=== PATIENT | male | born 1955 | race Caucasian/White ===

== ENCOUNTER 2020-07-20 01:24 | Inpatient (IN) | payer OTHER ==
[~2020-07-20] VITALS: Ht 182.9 cm; Wt 104.1 kg
--- NOTE | 2020-07-20 01:55 | NUR ---
PATIENT ARRIVED WITH NS IVF INSUING TO GRAVITY AND ZOSYN HAD FINISHED UPON ARRIVAL. PATIENT GRUNTING. NOT RESPONDING/FOLLOWING COMMANDS BUT EYES OPEN. EYES JAUNDICED AND SKIN SLIGHTLY JAUNDICED. NG TUBE IN L NARE AT 69CM AT THE NARE. PATIENT NONVERBAL. GRINDING TEETH. INCONTINENT;SATURATED BRIEF. VS STABLE ON RA. PATIENT STARTED TO COUGH AND VOMITED UP SMALL AMOUNT OF BROWN EMESIS. NG ATTACHED TO CONTINUOUS SUCTION. BROWN FLUID SEEN IN TUBING. DOES NOT ANSWER QUESTIONS. 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 PUPILS 5MM AND SLUGGISH TO LIGHT; ROUND
--- NOTE | 2020-07-20 01:58 | NUR ---
REPORT GIVEN TO PAU KELLER AT BEDSIDE
[2020-07-20] MEDS ORDERED: ONDANSETRON 2MG/ML, 2ML IVPush ONE (02:00)
[2020-07-20] MEDS ORDERED: SODIUM CHLORIDE 0.9% 1,000ML IVBOLUS ONE (02:00)
[2020-07-20 02:29] LABS: MEAN CORPUSCULAR HEMOGLOBIN 37.1 pg (27.5-34.5); MEAN CORPUSCULAR HGB CONC 34.7 g/dL (33.2-36.2); PLATELET COUNT 116 x10^3/uL (130-400); RED BLOOD COUNT 2.44 x10^6/uL (4.38-5.82); RED CELL DISTRIBUTION WIDTH 16.2 % (9.4-14.8)
[2020-07-20 02:34] LABS: INTERNATIONAL NORMALIZED RATIO 2.14 (0.93-1.1); PROTHROMBIN TIME 22.5 Seconds (9.6-11.5)
[2020-07-20 02:36] LABS: ALANINE AMINOTRANSFERASE 69 U/L (12-78); ALBUMIN 1.9 g/dL (3.4-5.0); ANION GAP 6 mmol/L (5-15); CALCIUM 8.3 mg/dL (8.5-10.1); CHLORIDE 115 mmol/L (98-107); CREATININE 1.32 mg/dL (0.7-1.3)
[2020-07-20 02:39] LABS: ALKALINE PHOSPHATASE 111 U/L (45-117); TOTAL PROTEIN 7.9 g/dL (6.4-8.2); TROPONIN I < 0.015 ng/mL (0.000-0.045)
[2020-07-20 02:45] LABS: MD YES
[2020-07-20 02:52] LABS: BANDS%(MANUAL) 1 % (0-7); LYMPH#(MANUAL) 1.22 x10^3/uL (1-3.4); LYMPHS% (MANUAL) 12 % (22-44); MONOS#(MANUAL) 1.33 x10^3/uL (0.3-2.7); MONOS% (MANUAL) 13 % (2-9); SEG#(MANUAL) 7.55 x10^3/uL (1.8-6.8); SEGS% (MANUAL) 74 % (42-75)
[2020-07-20 02:54] LABS: ANISOCYTOSIS 2+
[2020-07-20 02:55] LABS: TARGET CELLS 1+
[2020-07-20 02:59] LABS: <PLATELET ESTIMATE> DECREASED; <PLT MORPHOLOGY> NORMAL PLT MORPH
[2020-07-20 03:00] LABS: MICROCYTOSIS 1+
[2020-07-20 03:30] LABS: MICROSCOPIC INDICATED
[2020-07-20] MEDS ORDERED: PANTOPRAZOLE 80 MG in SODIUM CHLORIDE 0.9% 50 ML IVPB ONE (04:00)
[2020-07-20] MEDS: PLEASE ENTER HEIGHT MC SCH (04:00)
[2020-07-20] MEDS ORDERED: OCTREOTIDE 50 MCG/ML, 1ML (0.05MG/ML) IVPush ONE (04:00)
[2020-07-20] MEDS ORDERED: PANTOPRAZOLE 80 MG in SODIUM CHLORIDE 0.9% 100 ML IV SCH (04:00)
[2020-07-20] MEDS: OCTREOTIDE 500 MCG in SODIUM CHLORIDE 0.9% 99 ML IV SCH ×2 (04:21→13:16)
--- NOTE | 2020-07-20 04:28 | NUR ---
PT MOVED TO TR04 FOR INTUBATION Addendum: 07/20/20 at 0557 by [email or web address] INTUBATED DUE TO INABILITY TO MAINTAIN AIRWAY DURING DRY HEAVES AND VOMITING
--- NOTE | 2020-07-20 04:34 | NUR ---
PT GIVEN 20 OF ETOMIDATE AND 100 OF SUCS, INTUBATED 26 AT THE TEETH. VENT SETTINGS 3L 100%, PEEP OF 5, RATE 18, TIDAL VOL 480. Addendum: 07/20/20 at 0637 by [email or web address] 7.5ET TUBE 26 AT THE TEETH
--- NOTE | 2020-07-20 04:35 | NUR ---
BREATH SOUNDS HEARD IN ALL [place]. EQUAL RISE AND FALL OF CHEST NOTED WITH END TIDAL OF 24
--- NOTE | 2020-07-20 04:58 | NUR ---
5MG VERSED GIVEN PER VERBAL ORDER DR. ESTRELLA
[2020-07-20] MEDS ORDERED: PHARMACY MAY ADJ FOR RENAL FX MC PRN (05:00)
[2020-07-20] MEDS ORDERED: THIAMINE 200 MG in SODIUM CHLORIDE 0.9% 50 ML IV ONE (05:00)
[2020-07-20] MEDS ORDERED: PHYTONADIONE 10 MG/ML, 1ML SQ ONE (05:00)
[2020-07-20] MEDS: MIDAZOLAM HCL 50 MG in SODIUM CHLORIDE 0.9% 40 ML IV PRN ×2 (05:25→16:16)
[2020-07-20] MEDS ORDERED: MIDAZOLAM 1 MG/ML, 5ML IVPush ONE (05:30)
[2020-07-20] MEDS ORDERED: MIDAZOLAM 2 MG/ML ORAL SOL PO ONE (05:30)
--- NOTE | 2020-07-20 05:35 | NUR ---
DR RECIO AT BEDSIDE TO ASSESS/ ADMIT PT
--- NOTE | 2020-07-20 06:16 | NUR ---
PT CLEANED OR BLACK TARRY STOOL AND REPOSITIONED. RIVERA CLEAR RETA URINE DRAINING WITHOUT DIFFICULTY.
[2020-07-20] MEDS ORDERED: ETOMIDATE 20 MG/10 ML ONE (06:27)
[2020-07-20] MEDS ORDERED: MIDAZOLAM 1 MG/ML, 5ML ONE (06:27)
[2020-07-20] MEDS ORDERED: SUCCINYLCHOLINE 20 MG/ML, 10ML ONE (06:27)
--- NOTE | 2020-07-20 06:37 | NUR ---
RESPIRATORY AT BEDSIDE VENT ADJUSTED. NEW RATE 14 AT 80%. PT SAT REMAINS 100% AT THIS TIME. VERSED DRIP TITRATED WELL
--- NOTE | 2020-07-20 06:54 | NUR ---
REPORT TO KATHY KELLERCOMPUTED TOMOGRAPHY TECHNOLOGIST OF CARE AT THIS TIME
[2020-07-20] MEDS: PANTOPRAZOLE 80 MG in SODIUM CHLORIDE 0.9% 100 ML IV SCH ×2 (07:36→13:16)
[2020-07-20] MEDS ORDERED: PIPERACILLIN/TAZO/PMX 3.375GM 50 ML ONE (07:50)
[2020-07-20] MEDS ORDERED: PHYTONADIONE 10 MG/ML, 1ML ONE (07:51)
[2020-07-20] MEDS: PIPERACILLIN/TAZO/PMX 3.375GM 50 ML IV SCH ×4 (07:57→23:15)
[2020-07-20 08:39] LABS: AMPHETAMINE SCREEN, URINE Negative (Negative); BARBITURATE SCREEN, URINE Negative (Negative); BENZODIAZEPINE SCREEN, URINE Negative (Negative); CANNABINOID SCREEN, URINE Negative (Negative); COCAINE SCREEN, URINE Negative (Negative); METHADONE SCREEN, URINE Negative (Negative); OPIATE SCREEN, URINE Negative (Negative)
[2020-07-20] MEDS: THIAMINE 200 MG in SODIUM CHLORIDE 0.9% 50 ML IV SCH (09:54)
[2020-07-20] MEDS ORDERED: LIDOCAINE-MPF 1%, 2ML ENDO PRN (10:00)
[2020-07-20] MEDS ORDERED: GLUCAGON 1 MG IM PRN (10:00)
[2020-07-20] MEDS ORDERED: OCTREOTIDE 500 MCG in SODIUM CHLORIDE 0.9% 99 ML IV SCH (10:00)
[2020-07-20] MEDS ORDERED: DEXTROSE 50%, 50ML SYRINGE IVPush PRN (10:00)
[2020-07-20] MEDS ORDERED: PHARMACY MAY ADJ FOR RENAL FX MC SCH (10:00)
[2020-07-20] MEDS ORDERED: ONDANSETRON 2MG/ML, 2ML IV PRN (10:00)
[2020-07-20] MEDS ORDERED: DEXTROSE 4 GM TAB.CHEW PO PRN (10:00)
[2020-07-20] MEDS ORDERED: NOREPINEPHRINE 8 MG in SODIUM CHLORIDE 0.9% 242 ML IV PRN (10:00)
[2020-07-20] MEDS ORDERED: MAGNESIUM SULFATE PMX 2GM/50ML 50 ML IV ONE (10:00)
[2020-07-20] MEDS ORDERED: FENTANYL PF 1,000 MCG in SODIUM CHLORIDE 0.9% 80 ML IV PRN (10:00)
[2020-07-20] MEDS ORDERED: CARV3.12 PO (10:52)
[2020-07-20] MEDS ORDERED: MULT-717 PO (10:52)
[2020-07-20 11:05] LABS: BASOPHILS % (AUTO) 1 % (0-1); EOSINOPHILS % (AUTO) 1 % (1-7); LYMPHOCYTES % (AUTO) 26 % (22-44); MEAN CORPUSCULAR HEMOGLOBIN 37.4 pg (27.5-34.5); MEAN CORPUSCULAR HGB CONC 34.4 g/dL (33.2-36.2); MEAN PLATELET VOLUME 8.9 fL (7.4-10.4); MONOCYTES % (AUTO) 9 % (2-9); NEUTROPHILS % (AUTO) 63 % (42-75); PLATELET COUNT 94 x10^3/uL (130-400); RED BLOOD COUNT 2.19 x10^6/uL (4.38-5.82); RED CELL DISTRIBUTION WIDTH 16.8 % (9.4-14.8)
[2020-07-20 11:09] LABS: MD NO
[2020-07-20 11:21] LABS: ALANINE AMINOTRANSFERASE 61 U/L (12-78); ALBUMIN 1.8 g/dL (3.4-5.0); ANION GAP 7 mmol/L (5-15); CALCIUM 7.9 mg/dL (8.5-10.1); CHLORIDE 117 mmol/L (98-107); CREATININE 1.34 mg/dL (0.7-1.3)
[2020-07-20 11:24] LABS: ALKALINE PHOSPHATASE 97 U/L (45-117); BILIRUBIN,TOTAL 7.6 mg/dL (0.2-1.0); TOTAL PROTEIN 7.4 g/dL (6.4-8.2)
--- NOTE | 2020-07-20 11:47 | NUR ---
TF goal in RD note if needed
[2020-07-20] MEDS: SODIUM CHLORIDE FLUSH 10ML SYR IVF SCH ×2 (11:53→22:07)
[2020-07-20] MEDS: SODIUM CHLORIDE 0.9% 1,000 ML IV SCH (17:28)
[2020-07-20] MEDS: LACTULOSE 20 GM/30 ML UDC NG SCH ×2 (18:01→22:07)
[2020-07-20] MEDS: RIFAXIMIN 550 MG TABLET PO SCH (18:01)
[2020-07-21] VITALS (16 sets, daily range): BP systolic 95–131; BP diastolic 50–71
[2020-07-21] MEDS: PANTOPRAZOLE 80 MG in SODIUM CHLORIDE 0.9% 100 ML IV SCH ×2 (00:30→11:15)
[2020-07-21] MEDS: SODIUM CHLORIDE 0.9% 1,000 ML IV SCH ×2 (02:20→17:15)
[2020-07-21 04:48] LABS: BASOPHILS % (AUTO) 1 % (0-1); EOSINOPHILS % (AUTO) 5 % (1-7); LYMPHOCYTES % (AUTO) 29 % (22-44); MEAN CORPUSCULAR HEMOGLOBIN 36.9 pg (27.5-34.5); MEAN CORPUSCULAR HGB CONC 34.9 g/dL (33.2-36.2); MEAN PLATELET VOLUME 8.9 fL (7.4-10.4); MONOCYTES % (AUTO) 10 % (2-9); NEUTROPHILS % (AUTO) 56 % (42-75); PLATELET COUNT 77 x10^3/uL (130-400)
[2020-07-21 04:57] LABS: INTERNATIONAL NORMALIZED RATIO 1.84 (0.93-1.1); PROTHROMBIN TIME 19.4 Seconds (9.6-11.5)
[2020-07-21 05:00] LABS: ALBUMIN 1.8 g/dL (3.4-5.0); ANION GAP 9 mmol/L (5-15); CALCIUM 7.7 mg/dL (8.5-10.1); CHLORIDE 118 mmol/L (98-107)
[2020-07-21] MEDS: PIPERACILLIN/TAZO/PMX 3.375GM 50 ML IV SCH ×4 (05:15→23:23)
[2020-07-21 05:29] LABS: ALANINE AMINOTRANSFERASE 53 U/L (12-78); ALKALINE PHOSPHATASE 87 U/L (45-117); BILIRUBIN,TOTAL 7.6 mg/dL (0.2-1.0); CREATININE 1.37 mg/dL (0.7-1.3); TOTAL PROTEIN 6.8 g/dL (6.4-8.2)
[2020-07-21 05:44] LABS: MD SCAN
[2020-07-21] MEDS: LACTULOSE 20 GM/30 ML UDC NG SCH ×2 (09:00→16:00)
[2020-07-21] MEDS: RIFAXIMIN 550 MG TABLET PO SCH (09:00)
[2020-07-21] MEDS: THIAMINE 200 MG in SODIUM CHLORIDE 0.9% 50 ML IV SCH (09:01)
[2020-07-21] MEDS: SODIUM CHLORIDE FLUSH 10ML SYR IVF SCH ×2 (09:01→20:27)
[2020-07-21] MEDS ORDERED: MIDAZOLAM 1 MG/ML, 5ML ONE (10:33)
[2020-07-21] MEDS ORDERED: FENTANYL PF 100 MCG/2ML ONE (10:33)
[2020-07-21] MEDS ORDERED: EPINEPHRINE SYRINGE 0.1 MG/ML, 10ML ONE (10:40)
[2020-07-21] MEDS ORDERED: PANTOPRAZOLE 40 MG IV IVPush SCH (17:30)
[2020-07-21] MEDS: ESOMEPRAZOLE 40 MG IV IVPush SCH (17:56)
[2020-07-21] MEDS ORDERED: LACTULOSE 3.3 GM/5 ML ORAL.SOL RC SCH (21:00)
[2020-07-22] MEDS: SODIUM CHLORIDE 0.9% 1,000 ML IV SCH (04:14)
[2020-07-22 04:32] LABS: BASOPHILS % (AUTO) 1 % (0-1); EOSINOPHILS % (AUTO) 3 % (1-7); LYMPHOCYTES % (AUTO) 25 % (22-44); MEAN CORPUSCULAR HEMOGLOBIN 35.7 pg (27.5-34.5); MEAN PLATELET VOLUME 8.4 fL (7.4-10.4); MONOCYTES % (AUTO) 10 % (2-9); NEUTROPHILS % (AUTO) 61 % (42-75); PLATELET COUNT 71 x10^3/uL (130-400); RED CELL DISTRIBUTION WIDTH 22.9 % (9.4-14.8)
[2020-07-22 04:45] LABS: ALANINE AMINOTRANSFERASE 52 U/L (12-78); ALBUMIN 1.9 g/dL (3.4-5.0); ANION GAP 7 mmol/L (5-15); CALCIUM 7.9 mg/dL (8.5-10.1); CHLORIDE 122 mmol/L (98-107); CREATININE 1.33 mg/dL (0.7-1.3)
[2020-07-22 04:47] LABS: ALKALINE PHOSPHATASE 84 U/L (45-117); BILIRUBIN,TOTAL 8.7 mg/dL (0.2-1.0); TOTAL PROTEIN 7.1 g/dL (6.4-8.2)
[2020-07-22] MEDS: PIPERACILLIN/TAZO/PMX 3.375GM 50 ML IV SCH ×4 (05:04→22:04)
[2020-07-22 05:55] LABS: MD SCAN
[2020-07-22] MEDS: ESOMEPRAZOLE 40 MG IV IVPush SCH ×2 (06:23→17:51)
[2020-07-22] MEDS ORDERED: POTASSIUM CHLORIDE 40 MEQ in SODIUM CHLORIDE 0.9% 100 ML IV ONE (07:00)
[2020-07-22] MEDS: POTASSIUM CHLORIDE 40 MEQ in DEXTROSE 5% 1,000 ML IV SCH ×2 (07:55→21:46)
[2020-07-22] MEDS ORDERED: POTASSIUM CHLORIDE 40 MEQ in SODIUM CHLORIDE 0.9% 500 ML IV ONE (08:30)
[2020-07-22] MEDS: THIAMINE 200 MG in SODIUM CHLORIDE 0.9% 50 ML IV SCH (08:57)
[2020-07-22] MEDS: LACTULOSE 3.3 GM/5 ML ORAL.SOL RC SCH ×3 (09:00→21:46)
[2020-07-22] MEDS: SODIUM CHLORIDE FLUSH 10ML SYR IVF SCH ×2 (09:00→21:46)
[2020-07-22] MEDS: PROPOFOL 100 ML IV PRN ×3 (11:03→21:48)
[2020-07-23 04:51] LABS: BASOPHILS % (AUTO) 1 % (0-1); EOSINOPHILS % (AUTO) 6 % (1-7); LYMPHOCYTES % (AUTO) 25 % (22-44); MEAN CORPUSCULAR HEMOGLOBIN 35.5 pg (27.5-34.5); MEAN CORPUSCULAR HGB CONC 34.6 g/dL (33.2-36.2); MEAN PLATELET VOLUME 8.8 fL (7.4-10.4); MONOCYTES % (AUTO) 12 % (2-9); NEUTROPHILS % (AUTO) 57 % (42-75); PLATELET COUNT 70 x10^3/uL (130-400); RED BLOOD COUNT 2.35 x10^6/uL (4.38-5.82); RED CELL DISTRIBUTION WIDTH 23.3 % (9.4-14.8)
[2020-07-23 04:56] LABS: ANION GAP 5 mmol/L (5-15); CALCIUM 7.8 mg/dL (8.5-10.1); CHLORIDE 126 mmol/L (98-107); CREATININE 1.13 mg/dL (0.7-1.3)
[2020-07-23 05:08] LABS: TRIGLYCERIDES 136 mg/dL (50-200)
[2020-07-23] MEDS: PIPERACILLIN/TAZO/PMX 3.375GM 50 ML IV SCH (05:12)
[2020-07-23] MEDS: ESOMEPRAZOLE 40 MG IV IVPush SCH ×2 (05:13→17:34)
[2020-07-23 05:55] LABS: MD SCAN
[2020-07-23] MEDS: PROPOFOL 100 ML IV PRN ×2 (07:58→20:18)
[2020-07-23] MEDS: CEFTRIAXONE PMX 2GM/50ML 50 ML IVPB SCH (07:58)
[2020-07-23] MEDS: THIAMINE 200 MG in SODIUM CHLORIDE 0.9% 50 ML IV SCH (09:11)
[2020-07-23] MEDS: SODIUM CHLORIDE FLUSH 10ML SYR IVF SCH ×2 (09:11→21:00)
[2020-07-23] MEDS: LACTULOSE 3.3 GM/5 ML ORAL.SOL RC SCH ×2 (09:55→21:03)
[2020-07-23] MEDS: POTASSIUM CHLORIDE 40 MEQ in DEXTROSE 5% 1,000 ML IV SCH ×2 (11:30→21:04)
[2020-07-23] MEDS ORDERED: MIDAZOLAM 1 MG/ML, 2ML IVPush ONE (12:00)
[2020-07-23] MEDS ORDERED: SODIUM CHLORIDE 0.9%, 500ML IVBOLUS ONE (17:30)
[2020-07-24] MEDS: PROPOFOL 100 ML IV PRN (01:15)
[2020-07-24 04:26] LABS: BASOPHILS % (AUTO) 1 % (0-1); EOSINOPHILS % (AUTO) 5 % (1-7); LYMPHOCYTES % (AUTO) 29 % (22-44); MEAN CORPUSCULAR HEMOGLOBIN 35.7 pg (27.5-34.5); MEAN CORPUSCULAR HGB CONC 34.3 g/dL (33.2-36.2); MEAN PLATELET VOLUME 8.7 fL (7.4-10.4); MONOCYTES % (AUTO) 15 % (2-9); NEUTROPHILS % (AUTO) 51 % (42-75); PLATELET COUNT 67 x10^3/uL (130-400); RED BLOOD COUNT 2.34 x10^6/uL (4.38-5.82); RED CELL DISTRIBUTION WIDTH 22.5 % (9.4-14.8)
[2020-07-24 04:42] LABS: ANION GAP 4 mmol/L (5-15); CALCIUM 7.8 mg/dL (8.5-10.1); CHLORIDE 124 mmol/L (98-107)
[2020-07-24 04:45] LABS: CREATININE 1.08 mg/dL (0.7-1.3)
[2020-07-24] MEDS: ESOMEPRAZOLE 40 MG IV IVPush SCH ×2 (05:19→18:22)
[2020-07-24 05:39] LABS: MD SCAN
[2020-07-24] MEDS: CEFTRIAXONE PMX 2GM/50ML 50 ML IVPB SCH (05:57)
[2020-07-24] MEDS ORDERED: MAGNESIUM SULFATE PMX 2GM/50ML 50 ML IV ONE (06:30)
[2020-07-24] MEDS: SODIUM CHLORIDE FLUSH 10ML SYR IVF SCH ×2 (10:13→22:20)
[2020-07-24] MEDS: THIAMINE 200 MG in SODIUM CHLORIDE 0.9% 50 ML IV SCH (10:13)
[2020-07-24] MEDS: LACTULOSE 3.3 GM/5 ML ORAL.SOL RC SCH ×2 (10:13→22:28)
[2020-07-24 14:00] VITALS: BP 118/73
[2020-07-24 20:21] VITALS: BP 133/80
[2020-07-25 01:27] VITALS: BP 138/86
[2020-07-25] MEDS: CEFTRIAXONE PMX 2GM/50ML 50 ML IVPB SCH (05:54)
[2020-07-25] MEDS: ESOMEPRAZOLE 40 MG IV IVPush SCH ×2 (05:54→17:32)
[2020-07-25 06:05] LABS: BASOPHILS % (AUTO) 1 % (0-1); EOSINOPHILS % (AUTO) 3 % (1-7); LYMPHOCYTES % (AUTO) 26 % (22-44); MEAN CORPUSCULAR HEMOGLOBIN 35.7 pg (27.5-34.5); MEAN CORPUSCULAR HGB CONC 33.9 g/dL (33.2-36.2); MEAN PLATELET VOLUME 8.7 fL (7.4-10.4); MONOCYTES % (AUTO) 15 % (2-9); NEUTROPHILS % (AUTO) 56 % (42-75); PLATELET COUNT 79 x10^3/uL (130-400); RED BLOOD COUNT 2.59 x10^6/uL (4.38-5.82); RED CELL DISTRIBUTION WIDTH 22.4 % (9.4-14.8)
[2020-07-25 06:09] LABS: CHLORIDE 123 mmol/L (98-107)
[2020-07-25 06:14] LABS: ANION GAP 5 mmol/L (5-15); CALCIUM 8.7 mg/dL (8.5-10.1); CREATININE 1.03 mg/dL (0.7-1.3)
[2020-07-25 06:38] LABS: MD SCAN
[2020-07-25 07:05] VITALS: BP 161/92
[2020-07-25] MEDS: SODIUM CHLORIDE FLUSH 10ML SYR IVF SCH ×2 (09:00→20:07)
[2020-07-25] MEDS: THIAMINE 200 MG in SODIUM CHLORIDE 0.9% 50 ML IV SCH (09:11)
[2020-07-25 13:42] VITALS: BP 130/72
[2020-07-25] MEDS: LACTULOSE 20 GM/30 ML UDC PO SCH (20:07)
[2020-07-25 20:09] VITALS: BP 113/71
[2020-07-26] VITALS (8 sets, daily range): BP systolic 100–138; BP diastolic 65–72
[2020-07-26 05:36] LABS: ALBUMIN 1.8 g/dL (3.4-5.0); ANION GAP 9 mmol/L (5-15); CALCIUM 8.1 mg/dL (8.5-10.1); CHLORIDE 113 mmol/L (98-107)
[2020-07-26] MEDS: ESOMEPRAZOLE 40 MG IV IVPush SCH ×2 (05:36→16:58)
[2020-07-26] MEDS: CEFTRIAXONE PMX 2GM/50ML 50 ML IVPB SCH (05:36)
[2020-07-26 05:42] LABS: ALANINE AMINOTRANSFERASE 54 U/L (12-78); ALKALINE PHOSPHATASE 88 U/L (45-117); BILIRUBIN,TOTAL 5.5 mg/dL (0.2-1.0); CREATININE 0.94 mg/dL (0.7-1.3); TOTAL PROTEIN 7.2 g/dL (6.4-8.2)
[2020-07-26] MEDS: SODIUM CHLORIDE FLUSH 10ML SYR IVF SCH ×2 (09:00→22:31)
[2020-07-26] MEDS: LACTULOSE 20 GM/30 ML UDC PO SCH ×3 (09:08→21:00)
[2020-07-26] MEDS: THIAMINE 200 MG in SODIUM CHLORIDE 0.9% 50 ML IV SCH (09:08)
[2020-07-26] MEDS ORDERED: POTASSIUM CHLORIDE 20 MEQ TAB.ER.PRT PO ONE (16:30)
[2020-07-26] MEDS: THIAMINE 100MG TABLET PO SCH (22:31)
[2020-07-27 01:29] VITALS: BP 137/75
[2020-07-27 02:01] VITALS: BP 137/78
[2020-07-27] MEDS: CEFTRIAXONE PMX 2GM/50ML 50 ML IVPB SCH (05:45)
[2020-07-27] MEDS: ESOMEPRAZOLE 40 MG IV IVPush SCH ×2 (05:45→17:12)
[2020-07-27 07:54] VITALS: BP 119/66
[2020-07-27] MEDS: LACTULOSE 20 GM/30 ML UDC PO SCH ×4 (07:59→21:03)
[2020-07-27] MEDS: THIAMINE 100MG TABLET PO SCH ×2 (08:00→21:02)
[2020-07-27] MEDS: SODIUM CHLORIDE FLUSH 10ML SYR IVF SCH ×2 (08:00→21:03)
[2020-07-27 08:42] LABS: BASOPHILS % (AUTO) 0 % (0-1); EOSINOPHILS % (AUTO) 3 % (1-7); LYMPHOCYTES % (AUTO) 29 % (22-44); MEAN CORPUSCULAR HEMOGLOBIN 34.8 pg (27.5-34.5); MEAN CORPUSCULAR HGB CONC 34.6 g/dL (33.2-36.2); MEAN PLATELET VOLUME 8.9 fL (7.4-10.4); MONOCYTES % (AUTO) 15 % (2-9); NEUTROPHILS % (AUTO) 54 % (42-75); PLATELET COUNT 81 x10^3/uL (130-400); RED BLOOD COUNT 2.81 x10^6/uL (4.38-5.82); RED CELL DISTRIBUTION WIDTH 22.9 % (9.4-14.8)
[2020-07-27 08:52] LABS: ALBUMIN 1.9 g/dL (3.4-5.0); ANION GAP 6 mmol/L (5-15); CALCIUM 8.3 mg/dL (8.5-10.1); CHLORIDE 113 mmol/L (98-107)
[2020-07-27 08:56] LABS: ALANINE AMINOTRANSFERASE 56 U/L (12-78); ALKALINE PHOSPHATASE 88 U/L (45-117); BILIRUBIN,TOTAL 6.5 mg/dL (0.2-1.0); CREATININE 0.92 mg/dL (0.7-1.3); TOTAL PROTEIN 7.5 g/dL (6.4-8.2)
[2020-07-27 09:11] LABS: MD SCAN
[2020-07-27 12:33] VITALS: BP 123/75
[2020-07-27] MEDS ORDERED: MAGNESIUM SULFATE PMX 2GM/50ML 50 ML IV ONE (16:30)
[2020-07-27] MEDS: FUROSEMIDE 20 MG TABLET PO SCH (17:12)
[2020-07-27 19:26] VITALS: BP 136/75
[2020-07-27] MEDS: SPIRONOLACTONE 25 MG TABLET PO SCH (21:02)
[2020-07-28 01:25] VITALS: BP 137/78
[2020-07-28 05:41] LABS: BASOPHILS % (AUTO) 1 % (0-1); EOSINOPHILS % (AUTO) 3 % (1-7); LYMPHOCYTES % (AUTO) 28 % (22-44); MEAN CORPUSCULAR HGB CONC 34.6 g/dL (33.2-36.2); MEAN PLATELET VOLUME 8.6 fL (7.4-10.4); MONOCYTES % (AUTO) 15 % (2-9); NEUTROPHILS % (AUTO) 54 % (42-75); PLATELET COUNT 88 x10^3/uL (130-400); RED BLOOD COUNT 2.84 x10^6/uL (4.38-5.82); RED CELL DISTRIBUTION WIDTH 22.7 % (9.4-14.8)
[2020-07-28 05:52] LABS: CHLORIDE 113 mmol/L (98-107)
[2020-07-28 05:58] LABS: ANION GAP 7 mmol/L (5-15); CALCIUM 8.5 mg/dL (8.5-10.1); CREATININE 0.81 mg/dL (0.7-1.3)
[2020-07-28] MEDS: ESOMEPRAZOLE 40 MG IV IVPush SCH (06:11)
[2020-07-28] MEDS: CEFTRIAXONE PMX 2GM/50ML 50 ML IVPB SCH (06:11)
[2020-07-28] MEDS: LACTULOSE 20 GM/30 ML UDC PO SCH ×4 (06:11→21:05)
[2020-07-28 06:43] LABS: ANISOCYTOSIS 1+; MD MORPH REVIEW ONLY
[2020-07-28 06:44] LABS: <PLATELET ESTIMATE> DECREASED; <PLT MORPHOLOGY> NORMAL PLT MORPH
[2020-07-28 07:08] VITALS: BP 133/69
[2020-07-28] MEDS: FUROSEMIDE 20 MG TABLET PO SCH ×2 (07:27→11:30)
[2020-07-28] MEDS: SODIUM CHLORIDE FLUSH 10ML SYR IVF SCH ×2 (07:27→21:05)
[2020-07-28] MEDS: THIAMINE 100MG TABLET PO SCH ×2 (07:27→21:05)
[2020-07-28] MEDS: SPIRONOLACTONE 25 MG TABLET PO SCH ×2 (07:27→21:05)
[2020-07-28] MEDS ORDERED: POTASSIUM CHLORIDE 40 MEQ in SODIUM CHLORIDE 0.9% 500 ML IV ONE (08:00)
[2020-07-28] MEDS: PANTOPRAZOLE 40MG TABLET PO SCH ×2 (11:30→21:05)
[2020-07-28 13:48] VITALS: BP 144/80
[2020-07-28 20:22] VITALS: BP 148/80
[2020-07-29 00:33] VITALS: BP 126/81
[2020-07-29 05:29] LABS: BASOPHILS % (AUTO) 1 % (0-1); EOSINOPHILS % (AUTO) 3 % (1-7); LYMPHOCYTES % (AUTO) 28 % (22-44); MEAN CORPUSCULAR HEMOGLOBIN 35.2 pg (27.5-34.5); MEAN CORPUSCULAR HGB CONC 34.7 g/dL (33.2-36.2); MEAN PLATELET VOLUME 8.7 fL (7.4-10.4); MONOCYTES % (AUTO) 13 % (2-9); NEUTROPHILS % (AUTO) 56 % (42-75); PLATELET COUNT 105 x10^3/uL (130-400); RED BLOOD COUNT 2.98 x10^6/uL (4.38-5.82); RED CELL DISTRIBUTION WIDTH 23.2 % (9.4-14.8)
[2020-07-29 05:34] LABS: ANION GAP 7 mmol/L (5-15); CALCIUM 8.9 mg/dL (8.5-10.1); CHLORIDE 113 mmol/L (98-107)
[2020-07-29 05:38] LABS: ALANINE AMINOTRANSFERASE 74 U/L (12-78); ALKALINE PHOSPHATASE 103 U/L (45-117); BILIRUBIN,TOTAL 5.5 mg/dL (0.2-1.0); CREATININE 0.98 mg/dL (0.7-1.3); TOTAL PROTEIN 8.1 g/dL (6.4-8.2)
[2020-07-29] MEDS: CEFTRIAXONE PMX 2GM/50ML 50 ML IVPB SCH (06:06)
[2020-07-29] MEDS: LACTULOSE 20 GM/30 ML UDC PO SCH ×3 (06:06→14:58)
[2020-07-29 06:34] LABS: MD SCAN
[2020-07-29 06:56] VITALS: BP 114/62
[2020-07-29] MEDS: SPIRONOLACTONE 25 MG TABLET PO SCH (09:05)
[2020-07-29] MEDS: FUROSEMIDE 20 MG TABLET PO SCH (09:05)
[2020-07-29] MEDS: PANTOPRAZOLE 40MG TABLET PO SCH (09:05)
[2020-07-29] MEDS: THIAMINE 100MG TABLET PO SCH (09:05)
[2020-07-29] MEDS: SODIUM CHLORIDE FLUSH 10ML SYR IVF SCH (09:06)
[2020-07-29] MEDS ORDERED: POTASSIUM CHLORIDE 20 MEQ TAB.ER.PRT PO ONE (10:30)
[2020-07-29 12:39] VITALS: BP 135/80
[2020-07-29] MEDS ORDERED: LACT20SO13 PO (15:48)
[2020-07-29] MEDS ORDERED: FURO20TA3 PO (15:48)
[2020-07-29] MEDS ORDERED: PANT40TA6 PO (15:48)
[2020-07-29] MEDS ORDERED: MAGN400T50 PO (15:48)
[2020-07-29] MEDS ORDERED: THIA100T67 PO (15:48)
[2020-07-29] MEDS ORDERED: SPIR25TA PO (15:48)
[2020-07-29] MEDS ORDERED: MULT-257 PO (15:59)
[2020-07-29] MEDS ORDERED: FOLI1TAB32 PO (15:59)
[2020-07-29] MEDS ORDERED: MAGNESIUM SULFATE PMX 2GM/50ML 50 ML IV ONE (16:00)
[2020-07-29] MEDS ORDERED: MAGNESIUM OXIDE 400 MG TABLET PO ONE (16:00)
[2020-07-29 16:18] VITALS: BP 126/77
[2020-07-29 16:19] VITALS: BP 134/78
[2020-07-29 16:20] VITALS: BP 99/66
[2020-07-29] MEDS ORDERED: MAGNESIUM OXIDE 400 MG TABLET PO SCH (21:00)
== END 2020-07-29 17:50 | disposition home or self-care (01) | DRG 441 ==
LOC: ED 01:44 → EDIP 04:50 → CCU 08:08 → 3N 07-24 15:27
PROVIDERS: ADMIT Family Medicine; ATTEND Internal Medicine
PROC: 5A1955Z Respiratory Ventilation, Greater than 96 Consecutive Hours (ICD-10-PCS; 2020-07-20)
PROC: 0BH17EZ Insertion of Endotracheal Airway into Trachea, Via Natural or Artificial Opening (ICD-10-PCS; 2020-07-20)
PROC: 0T9B70Z Drainage of Bladder with Drainage Device, Via Natural or Artificial Opening (ICD-10-PCS; 2020-07-20)
PROC: 30233N1 Transfusion of Nonautologous Red Blood Cells into Peripheral Vein, Percutaneous Approach (ICD-10-PCS; 2020-07-21)
PROC: 30233K1 Transfusion of Nonautologous Frozen Plasma into Peripheral Vein, Percutaneous Approach (ICD-10-PCS; 2020-07-21)
PROC: 0DJ08ZZ Inspection of Upper Intestinal Tract, Via Natural or Artificial Opening Endoscopic (ICD-10-PCS; principal; 2020-07-21 08:00)
DX: K76.6 Portal hypertension (principal); I81 Portal vein thrombosis; E43 Unspecified severe protein-calorie malnutrition; G93.41 Metabolic encephalopathy; J15.5 Pneumonia due to Escherichia coli; J96.01 Acute respiratory failure with hypoxia; N17.0 Acute kidney failure with tubular necrosis; J69.0 Pneumonitis due to inhalation of food and vomit; K22.11 Ulcer of esophagus with bleeding; D68.4 Acquired coagulation factor deficiency; D62 Acute posthemorrhagic anemia; E87.0 Hyperosmolality and hypernatremia; E87.1 Hypo-osmolality and hyponatremia; E87.2 Acidosis; F10.239 Alcohol dependence with withdrawal, unspecified; Z99.11 Dependence on respirator [ventilator] status; K70.11 Alcoholic hepatitis with ascites; K70.40 Alcoholic hepatic failure without coma; K70.31 Alcoholic cirrhosis of liver with ascites; Z20.822 Contact with and (suspected) exposure to COVID-19; D69.59 Other secondary thrombocytopenia; E87.5 Hyperkalemia; E87.6 Hypokalemia; F03.90 Unspecified dementia, unspecified severity, without behavioral disturbance, psychotic disturbance, mood disturbance, and anxiety; D53.1 Other megaloblastic anemias, not elsewhere classified; D72.829 Elevated white blood cell count, unspecified; K31.89 Other diseases of stomach and duodenum; R00.0 Tachycardia, unspecified; Z87.19 Personal history of other diseases of the digestive system
CPT/HCPCS: 31500; 36415; 36600; 51702; 71045; 76700; 76705; 80048; 80053; 80074; 80307; 80320; 81001; 82140; 82607; 82803; 83605; 83735; 84100; 84132; 84145; 84443; 84478; 84484; 85014; 85018; 85025; 85610; 86850; 86900; 86923; 87040; 87070; 87081; 87086; 87186; 87205; 87635; 93005; 94002; 94003; 94150; 96372; 96374; 96375; 99291; G0378; J0696; J2250; J2354; J2543; J2704; J3010; J3411; J3430; J3480; J7070; 92523-GN; C9113; G0480; J0330; J3475; J7030; J7040; P9016; P9017; U0003